=== PATIENT | male | born 1990 | race African-American/Black ===

== ENCOUNTER 2018-11-10 01:24 | Emergency (ER) | payer MEDICAID ==
[~2018-11-10] VITALS: Ht 170.2 cm; Wt 86.2 kg
[2018-11-10 01:49] VITALS: BP 132/84
== END 2018-11-10 03:30 | disposition left against medical advice (07) ==
LOC: EDBD 01:24 → ER 01:37
DX: S00.81XA Abrasion of other part of head, initial encounter (principal); R51 Headache; Z53.21 Procedure and treatment not carried out due to patient leaving prior to being seen by health care provider; Y08.89XA Assault by other specified means, initial encounter; Y93.89 Activity, other specified; Y99.8 Other external cause status; Y92.89 Other specified places as the place of occurrence of the external cause
CPT/HCPCS: 70450; 70486

== ENCOUNTER 2022-09-30 14:42 | Emergency (ER) | payer MEDICAID ==
[~2022-09-30] VITALS: Ht 165.1 cm; Wt 79.4 kg
[2022-09-30 16:00] VITALS: BP 142/94
[2022-09-30] MEDS ORDERED: IBUPROFEN 800 MG TAB PO ONE (16:30)
[2022-09-30] MEDS ORDERED: cefTRIAXone SOD 1,000 MG VL IM ONE (16:30)
[2022-09-30] MEDS ORDERED: CLIN300C8 PO (16:42)
[2022-09-30] MEDS ORDERED: IBUP800T27 PO (16:42)
== END 2022-09-30 16:49 | disposition home or self-care (01) ==
LOC: ER 14:42
DX: K04.7 Periapical abscess without sinus (principal); F17.210 Nicotine dependence, cigarettes, uncomplicated; Z79.1 Long term (current) use of non-steroidal anti-inflammatories (NSAID); Z79.2 Long term (current) use of antibiotics
CPT/HCPCS: 96372; 99283; J0696